=== PATIENT | female | born 1970 | race African-American/Black ===

== ENCOUNTER 2017-01-05 20:12 | Emergency (ER) | payer MEDICAID, OTHER ==
[~2017-01-05] VITALS: Ht 160 cm; Wt 88.5 kg
[~2017-01-05 20:12] MED LIST: CYCLOBENZAPRINE10 MG ORAL; IBUPROFEN600 MG ORAL; NKM; PERCOCET 5-3251 EACH PO; VALIUM10 MG ORAL; ZANTAC150 MG ORAL
--- NOTE | 2017-01-05 20:57 | Emergency Room Report ---
History of Present Illness General Chief Complaint: Chest Pain Source: Patient Present Illness HPI Is a 46-year-old female with no past per history. She presents with left-sided chest pain that been constant the last 2 weeks. It waxes and wanes. Worse with movement. Worse with turning her head. Denies any trauma. 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 Pain is sharp in nature. 8/10. Better with rest. No diaphoresis. No exertional component. No nausea no vomiting. No shortness of breath. No leg edema. She's not on control pill. No family history of PE or DVT. Allergies: Coded Allergies: No Known Allergies (Unverified , 03/06/13) Patient History Past Medical History: none, see triage record, old chart reviewed Past Surgical History: none Pertinent Family History: none Social History: Denies: smoking Last Menstrual Period: 01/03/17 Now: No Immunizations: other Reviewed Nursing Documentation: PMH: Agreed, PSxH: Agreed Nursing Documentation-PMH Past Medical History: No Stated History Review of Systems Eye: Denies: blurred vision, eye pain ENT: Denies: ear pain, nose congestion, throat swelling Respiratory: Denies: cough, shortness of breath Cardiovascular: Reports: chest pain, Denies: palpitations Gastrointestinal: Denies: abdominal pain, diarrhea, nausea, vomiting Musculoskeletal: Denies: back pain, joint pain Skin: Denies: rash Neurological: Denies: headache, numbness Endocrine: Denies: increased thirst, increased urine Hematologic/Lymphatic: Denies: easy bruising All Other Systems: negative except mentioned in HPI Physical Exam Vital Signs Date Time Temp Pulse Resp B/P Pulse Ox O2 Delivery O2 Flow Rate FiO2 01/05/17 20:31 97.5 77 14 98/69 100 Room Air vitals normal Sp02 EP Interpretation: reviewed, normal General Appearance: well appearing, no apparent distress, alert Head: normocephalic, atraumatic Eyes: bilateral eye EOMI, bilateral eye PERRL ENT: hearing grossly normal, normal pharynx Neck: full range of motion, supple, no meningismus Respiratory: lungs clear, normal breath sounds, other - Reproducible chest pain on the left side with palpation. Cardiovascular #1: regular rate, rhythm, no murmur Gastrointestinal: normal bowel sounds, non tender, no mass, no organomegaly, no bruit, non-distended Musculoskeletal: back normal, gait/station normal, normal range of motion Psychiatric: mood/affect normal Skin: warm/dry Medical Decision Making Diagnostic Impression: Primary Impression: Chest pain Qualified Codes: R07.9 - Chest pain, unspecified Additional Impression: Anemia Qualified Codes: D50.0 - Iron deficiency anemia secondary to blood loss ( chronic) ER Course Patient presents with atypical chest pain. Is reproducible and worse with movement. Better after Toradol. This suggests a muscular skeletal origin. No evidence of ACS, PE, dissection. Troponin is negative EKG normal. Patient also said that her menstrual flow is very heavy. Now is that she is anemic. Her Dr. put on iron but it makes her nauseous and constipated. EKG Diagnostic Results Rate: normal Rhythm: NSR ST Segments: no acute changes Rhythm Strip Diag. Results EP Interpretation: yes Rate: 70 Rhythm: NSR, no PVC's, no ectopy Chest X-Ray Diagnostic Results EP Interpretation: Yes Findings: no consolidation, no effusion, no pneumothorax, no acute cardiopulmonary disease Number of Views: 1 Last Vital Signs Date Time Temp Pulse Resp B/P Pulse Ox O2 Delivery O2 Flow Rate FiO2 01/05/17 20:31 97.5 77 14 98/69 100 Room Air Status: improved Disposition: HOME, SELF-CARE Condition: Stable Scripts Naproxen* (NAPROSYN*) 500 Mg Tablet 500 MG ORAL TWICE A DAY, #30 TAB Prov: JILLIAN OLIVEROS M.D. 01/05/17 Patient Instructions: Nonspecific Chest Pain Additional Instructions: Followup with your DrDai in 7 days. Return if symptom worsen. JILLIAN OLIVEROS M.D. Jan 05, 2017 20:57
[2017-01-05] MEDS ORDERED: Ketorolac 30mg Inj IV ONE (21:00)
[2017-01-05 21:17] VITALS: BP 100/60
[2017-01-05 21:25] LABS: BASOPHILS % (AUTO) 1.6 % (0.0-2.0); MEAN CORPUSCULAR HEMOGLOBIN 22.3 PG (27.0-31.0); MEAN CORPUSCULAR HGB CONC 29.5 G/DL (32.0-36.0); MEAN CORPUSCULAR VOLUME 75 FL (80-99); MEAN PLATELET VOLUME 6.8 FL (6.5-10.1); MONOCYTES % (AUTO) 8.7 % (1.0-10.0); NEUTROPHILS % (AUTO) 62.8 % (45.0-75.0); PLATELET COUNT 470 K/UL (150-450); RED BLOOD COUNT 4.04 M/UL (4.20-5.40); WHITE BLOOD COUNT 8.7 K/UL (4.8-10.8)
[2017-01-05 22:09] LABS: ALANINE AMINOTRANSFERASE 13 U/L (3-33); ALBUMIN/GLOBULIN RATIO 1.5 (1.0-2.7); ANION GAP 16 (5-15); ASPARTATE AMINO TRANSFERASE 20 U/L (5-40); CALCIUM 9.1 mg/dL (8.6-10.2); CARBON DIOXIDE 24 mEQ/L (20-30); CHLORIDE 99 mEQ/L (98-107); CREATININE 0.9 mg/dL (0.5-0.9); GLOMERULAR FILTRATION RATE > 60 mL/min (>60); HEMOLYSIS 0; SODIUM 139 mEQ/L (135-145); TROPONIN I < 0.30 ng/mL (<=0.30)
[2017-01-05 22:16] LABS: APPEARANCE,URINE CLEAR; KETONES,URINE NEGATIVE (NEGATIVE); LEUKOCYTE ESTERASE ,URINE NEGATIVE (NEGATIVE); NITRITE,URINE NEGATIVE (NEGATIVE); PH,URINE 6 (4.5-8.0); PROTEIN,URINE NEGATIVE (NEGATIVE); UROBILINOGEN,URINE NORMAL MG/DL (0.0-1.0)
[2017-01-05 22:19] LABS: CKMB 2.6 ng/mL (< 3.8)
[2017-01-05] MEDS ORDERED: NAPROSYN500 M1 ORAL (22:31)
[2017-01-05 22:46] VITALS: BP 110/62
--- NOTE | 2017-01-06 10:38 | Diagnostic Imaging Report ---
Indication: Chest pain Technique: XRAY CHEST 1 V Comparison: 03/06/13 Findings: The cardiomediastinal silhouette is within normal limits. There is no focal consolidation, pneumothorax or pleural effusion. Osseous structures demonstrate no acute abnormality. Impression: No acute cardiopulmonary disease.
--- NOTE | 2017-01-07 18:30 | Cardiology Report ---
APPROVED REPORT EKG Measurement Heart [id number] Normal sinus rhythm Low voltage QRS Borderline ECG
== END 2017-01-05 22:47 | disposition home or self-care (01) ==
LOC: EMR 21:11
DX: R07.9 Chest pain, unspecified (principal); D50.0 Iron deficiency anemia secondary to blood loss (chronic)
CPT/HCPCS: 36415; 71010; 80053; 81003; 82550; 82553; 84484; 85025; 85379; 93005; 96374; 99284; J1885

== ENCOUNTER 2019-04-08 10:36 | Emergency (ER) | payer MEDICAID, OTHER ==
[~2019-04-08] VITALS: Ht 160 cm; Wt 79.8 kg
[~2019-04-08 10:36] MED LIST changes: +NAPROSYN500 M1 ORAL
--- NOTE | 2019-04-08 10:50 | NUR ---
ED Nurse Note: Patient walked into ED c/o coughing up greenish mucus since 04/04/19. patient is alert awake x4 ambulatory, breathing unlabored and even.
[2019-04-08 10:55] VITALS: BP 121/72
--- NOTE | 2019-04-08 11:04 | Emergency Room Report ---
History of Present Illness General Chief Complaint: Upper Respiratory Illness Source: Patient Present Illness HPI The patient presents with upper respiratory symptoms that began on Sunday. She has a sore throat a productive cough with green phlegm. She is been eating less because she cannot taste anything. She denies any vomiting or diarrhea. There is no dysuria. She does not smoke or use drugs. 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 She has been using TheraFlu and it has not helped. The cough is keeping her awake at night. Allergies: Coded Allergies: No Known Allergies (Unverified , 03/06/13) Patient History Past Medical History: see triage record Social History: Denies: smoking Social History Narrative Hairstylist Last Menstrual Period: 04/03/19 Now: No Reviewed Nursing Documentation: PMH: Agreed; PSxH: Agreed Nursing Documentation-PMH Past Medical History: No History, Except For Review of Systems All Other Systems: negative except mentioned in HPI Physical Exam Vital Signs Date Time Temp Pulse Resp B/P (MAP) Pulse Ox O2 Delivery O2 Flow Rate FiO2 04/08/19 10:41 98.1 83 20 117/76 (90) 100 Room Air Sp02 EP Interpretation: reviewed, normal General Appearance: well appearing, no apparent distress, GCS 15, non-toxic Head: normocephalic, atraumatic Eyes: bilateral eye normal inspection, bilateral eye PERRL ENT: hearing grossly normal, normal voice, pharyngeal erythema, tonsillar exudate Neck: full range of motion, supple Respiratory: lungs clear, normal breath sounds, no respiratory distress, speaking full sentences Cardiovascular #1: regular rate, rhythm Cardiovascular #2: 2+ radial (R) Gastrointestinal: normal inspection Genitourinary: no CVA tenderness Musculoskeletal: no calf tenderness Neurologic: alert, oriented x3, normal gait, grossly normal Psychiatric: mood/affect normal Skin: no rash Medical Decision Making Diagnostic Impression: Primary Impression: Pharyngitis Qualified Codes: J02.9 - Acute pharyngitis, unspecified Additional Impression: Upper respiratory infection Qualified Codes: J06.9 - Acute upper respiratory infection, unspecified ER Course Patient presents with sore throat runny nose and cough. Based on the exam she has pharyngitis and antibiotics are indicated. There is no bronchospasm at this time and steroids are not indicated. Also albuterol would not help at this time. Antibiotics and Tylenol given. Discussed treatment plan. Patient stable for outpatient observation and treatment. Last Vital Signs Date Time Temp Pulse Resp B/P (MAP) Pulse Ox O2 Delivery O2 Flow Rate FiO2 04/08/19 11:15 98.1 81 18 121/72 99 Room Air Status: improved Disposition: HOME, SELF-CARE Condition: Improved Scripts Chlorpheniramine Maleate (CHLOR-TRIMETON) 4 Mg Tablet 4 MG PO Q6HR PRN for congestion, #10 TAB Prov: Dhiraj Snyder MD 04/08/19 Amoxicillin* (AMOXIL*) 500 Mg Capsule 500 MG ORAL THREE TIMES A DAY, #21 CAP Prov: Dhiraj Snyder MD 04/08/19 Guaifenesin/Codeine Phos* (ROBITUSSIN AC*) 118 Ml Liquid 5 ML ORAL Q6H PRN for For Cough, #60 ML 0 Refills Prov: Dhiraj Snyder MD 04/08/19 Dhiraj Snyder MD Apr 08, 2019 11:04
[2019-04-08] MEDS ORDERED: AMOXICILLIN500 MG ORAL (11:07)
[2019-04-08] MEDS ORDERED: CHLOR-TRIMETON4 MG PO (11:07)
[2019-04-08] MEDS ORDERED: GUAIFENESIN-CO118 M1 ORAL (11:07)
[2019-04-08 11:15] VITALS: BP 121/72
--- NOTE | 2019-04-08 11:19 | NUR ---
ER DISCHARGE NOTE: Patient is cleared to be discharged per ERMD Dr Snyder, pt is aox4, on room air, with stable vital signs. pt was given dc and prescription instructions, pt was able to verbalize understanding, pt id band removed without complications. pt is able to ambulate with steady gait. pt took all belongings.
== END 2019-04-08 11:19 | disposition home or self-care (01) ==
LOC: EMR 10:54
DX: J02.9 Acute pharyngitis, unspecified (principal); J06.9 Acute upper respiratory infection, unspecified
CPT/HCPCS: 99282